=== PATIENT | male | born 1980 | race Caucasian/White ===

== ENCOUNTER → 2021-01-03 15:52 | Outpatient (CLI) | payer OTHER, SELFPAY ==
--- NOTE | ~2021-01-03 | XR_ITS ---
XR lumbar spine 2-3V DATE: 01/03/2021 16:11 INDICATION: Lumbago with right sciatica TECHNIQUE: AP, lateral, coned lateral lumbosacral views COMPARISON: None FINDINGS: There is prominent loss of interspace height at L5-S1. The lumbar interspaces are well pre served. No fracture or spondylolisthesis. The lumbar pedicles are intact. The sacroiliac joints a re normal. IMPRESSION: Prominent loss of interspace height at L5-S1 Reviewed, dictated and finalized at location A.
== END ==
PROVIDERS: PCP Family Medicine; Visit Provider Nurse Practitioner Family
DX: M54.41 Lumbago with sciatica, right side (principal)
CPT/HCPCS: 72100